=== PATIENT | male | born 1975 | race Caucasian/White ===

== ENCOUNTER 2017-05-22 10:14 | Emergency (ER) | payer OTHER ==
[~2017-05-22] VITALS: Ht 193 cm; Wt 86.2 kg
[~2017-05-22 10:14] MED LIST: TESSALON PERLE100 MG PO; ZITHROMAX250 MG PO
--- NOTE | 2017-05-22 21:36 | EKG ---
[facility] [address] [place], [place] [address] Signed Sinus bradycardia Otherwise normal ECG No previous ECGs available Confirmed by DAVID MCDONALD MD ([id number] on 05/22/2017 9:36:25 PM Electronically Signed By: DAVID MCDONALD MD 05/22/17 [id number] PATIENT NAME: JEFFREY LEIGHN Electrocardiogram DATE OF : 77 PHYSICIAN: DAVID MCDONALD MD REPORT #: [id number] REPORT IS CONFIDENTIAL AND NOT TO BE RELEASED WITHOUT AUTHORIZATION
== END 2017-05-22 13:53 | disposition home or self-care (01) ==
LOC: ED 10:14
DX: R55 Syncope and collapse (principal); F17.200 Nicotine dependence, unspecified, uncomplicated
CPT/HCPCS: 71045; 80053; 84484; 85025; 93005; 93010; 99284